=== PATIENT | female | born 1950 | race Caucasian/White ===

== ENCOUNTER 2016-12-25 06:23 | Day surgery (SDC) | payer MEDICARE, MEDICAID ==
[2016-12-25] MEDS ORDERED: Lactated Ringers 1,000 ML IV SCH (06:45)
[2016-12-25] MEDS ORDERED: Midazolam 1 MG/ML 2 ML SDV IV ONE (08:00)
[2016-12-25] MEDS ORDERED: Lidocaine 2% 100 MG/5 ML Syringe IVPUSH ONE (08:00)
[2016-12-25] MEDS ORDERED: Propofol 200 MG/20 ML SDV IV ONE (08:00)
--- NOTE | 2016-12-25 08:27 | PCM.OPNOTE ---
- General Post-Op/Procedure Note Date of Surgery/Procedure: 12/25/16 Operative Procedure(s): egd with bx Findings: antritis healing pyloric channel ulcers Pre Op Diagnosis: nausea vomiting. abd pain Post-Op Diagnosis: antritis. healing pyloric channel ulcers Anesthesia Technique: MAC Primary Surgeon: Billy Mathews Anesthesia Provider: Kirstie aCrpio Pathology: stomach Complications: None Condition: Good Free Text/Narrative:: see dictation
[2016-12-25 10:03] VITALS: BP 130/76
--- NOTE | 2016-12-25 10:37 | OR ---
DATE OF OPERATION: 12/25/2016 SURGEON: Billy Mathews MD PROCEDURE PERFORMED: Esophagogastroduodenoscopy with cold forceps biopsy. PREOPERATIVE DIAGNOSIS: Nausea and vomiting. POSTOPERATIVE DIAGNOSIS: Antritis with what appears to be healing pyloric ulcers. INDICATIONS FOR PROCEDURE: This is a 66-year-old white female, referred with a history of epigastric abdominal discomfort, persistent vomiting and vomiting. She was accepted an upper endoscopy. DESCRIPTION OF PROCEDURE: After an excellent IV sedation was administered, the bite block was inserted. The flexible endoscope was passed without difficulty down to the patient's esophagus into the stomach. The stomach was insufflated. The scope was passed through the pylorus to the second portion of duodenum and slowly withdrawn. The following findings were noted. Duodenum was unremarkable. The stomach, in the area of the antrum and the prepyloric area, there were what appeared to be two healing ulcerations. Biopsies were taken as well photos and some additional biopsies were taken of the antrum. The remainder of the stomach was essentially unremarkable. Esophagus was unremarkable. The stomach was deflated. The scope was removed. The patient tolerated the procedure well and was taken to recovery in good condition. /[id number] /MODL
== END 2016-12-25 09:50 | disposition home or self-care (01) ==
LOC: FB.SDS 06:23
PROVIDERS: ATTEND Surgery
DX: K29.50 Unspecified chronic gastritis without bleeding (principal); K31.9 Disease of stomach and duodenum, unspecified; R11.2 Nausea with vomiting, unspecified; K25.9 Gastric ulcer, unspecified as acute or chronic, without hemorrhage or perforation
CPT/HCPCS: 00902; 43239; J2250; J2704; J7120; 88305; 88342

== ENCOUNTER 2017-12-18 07:55 | Day surgery (SDC) | payer MEDICARE ==
[2017-12-18] MEDS ORDERED: Lactated Ringers 1,000 ML IV SCH (08:15)
[2017-12-18] MEDS ORDERED: Propofol 200 MG/20 ML SDV IV ONE (09:30)
[2017-12-18] MEDS ORDERED: Midazolam 1 MG/ML 2 ML SDV IV ONE (09:30)
--- NOTE | 2017-12-18 09:51 | PCM.OPNOTE ---
- General Post-Op/Procedure Note Date of Surgery/Procedure: 12/18/17 Operative Procedure(s): egd with bx Findings: diffuse gastritis Pre Op Diagnosis: nausea and emsis Post-Op Diagnosis: gastritis Anesthesia Technique: MAC Primary Surgeon: Billy Mathews Anesthesia Provider: Jesus Manuel Swanson Pathology: stomach Complications: None Condition: Good Free Text/Narrative:: see dictation #[id number]
[2017-12-18 11:19] VITALS: BP 119/65
--- NOTE | 2017-12-18 12:16 | OR ---
DATE OF OPERATION: 12/18/2017 SURGEON: Billy Mathews MD PROCEDURE: Esophagogastroduodenoscopy with cold forceps biopsy. PREOPERATIVE DIAGNOSES: Personal history of diffuse gastritis, persistent emesis, and abdominal pain. POSTOPERATIVE DIAGNOSIS: Gastritis. INDICATIONS FOR PROCEDURE: This is a 67-year-old white female who is well known to me. She has a history of chronic gastritis. Recently, she has had an exacerbation of her symptoms and has had some persistent nausea. As a result, we have brought her back for repeat endoscopy. DESCRIPTION OF PROCEDURE: After an excellent IV sedation was administered, the bite block was inserted. The flexible endoscope was passed without difficulty down the patient's esophagus into the stomach. The stomach was insufflated. Scope was passed through the pylorus to the second portion of the duodenum and slowly withdrawn. The following findings were noted. The duodenum was unremarkable. The stomach demonstrated some diffuse gastritis. Biopsies were taken. The pylorus was also noted to be patent with no evidence of stricture. The esophagus was unremarkable. Stomach was deflated, scope was removed. We will see the patient in followup in about a week. /[id number] /MODL
== END 2017-12-18 10:53 | disposition home or self-care (01) ==
LOC: FB.SDS 07:55
PROVIDERS: ATTEND Surgery
DX: K29.30 Chronic superficial gastritis without bleeding (principal); J44.9 Chronic obstructive pulmonary disease, unspecified; F17.210 Nicotine dependence, cigarettes, uncomplicated; E78.5 Hyperlipidemia, unspecified; F32.9 Major depressive disorder, single episode, unspecified; K21.9 Gastro-esophageal reflux disease without esophagitis; Z79.82 Long term (current) use of aspirin; Z79.899 Other long term (current) drug therapy
CPT/HCPCS: 00731; 43239; 88305; 88342; J2250; J2704; J7120

== ENCOUNTER 2022-02-14 05:59 | Day surgery (SDC) | payer MEDICARE ==
[2022-02-14] MEDS ORDERED: Propofol 200 MG/20 ML SDV IV ONE (06:00)
[2022-02-14] MEDS ORDERED: Sodium Chloride 0.9% 10 ML Syringe FLUSH PRN (06:15)
[2022-02-14] MEDS ORDERED: Lactated Ringers 1,000 ML IV SCH (06:15)
[2022-02-14 06:50] VITALS: BP 150/72; PULSE 69
== END 2022-02-14 08:45 | disposition home or self-care (01) ==
LOC: FB.SDS 05:59
PROVIDERS: ATTEND Surgery
DX: K31.89 Other diseases of stomach and duodenum (principal); K21.00 Gastro-esophageal reflux disease with esophagitis, without bleeding; K29.60 Other gastritis without bleeding; F41.9 Anxiety disorder, unspecified; J44.9 Chronic obstructive pulmonary disease, unspecified; F32.A Depression, unspecified; E78.5 Hyperlipidemia, unspecified; E66.9 Obesity, unspecified; M81.0 Age-related osteoporosis without current pathological fracture; Z90.49 Acquired absence of other specified parts of digestive tract; Z98.890 Other specified postprocedural states; Z79.899 Other long term (current) drug therapy; Z87.891 Personal history of nicotine dependence; Z68.37 Body mass index [BMI] 37.0-37.9, adult
CPT/HCPCS: 43239; J2704; J7120; 00731-QZ; 88305

== ENCOUNTER 2023-02-07 06:15 | Day surgery (SDC) | payer MEDICARE ==
[~2023-02-07 06:15] MED LIST: Lactated Ringers 1,000 ML IV SCH; Sodium Chloride 0.9% 10 ML Syringe FLUSH PRN
[2023-02-07] MEDS ORDERED: Propofol 200 MG/20 ML SDV IV ONE (06:16)
[2023-02-07] MEDS ORDERED: Lidocaine 2% 5 ML SDV IV ONE (06:16)
[2023-02-07] MEDS ORDERED: Lidocaine 2% 5 ML SDV ONE (06:16)
[2023-02-07] MEDS ORDERED: Glycopyrrolate 0.2 MG/ML 5 ML MDV IV ONE (06:16)
[2023-02-07 06:51] VITALS: BP 154/70; PULSE 70
== END 2023-02-07 09:27 | disposition home or self-care (01) ==
LOC: FB.SDS 06:15
PROVIDERS: ATTEND Surgery
DX: K21.00 Gastro-esophageal reflux disease with esophagitis, without bleeding (principal); K44.9 Diaphragmatic hernia without obstruction or gangrene; K29.70 Gastritis, unspecified, without bleeding; K31.89 Other diseases of stomach and duodenum; K22.70 Barrett's esophagus without dysplasia; J44.9 Chronic obstructive pulmonary disease, unspecified; F32.A Depression, unspecified; E78.5 Hyperlipidemia, unspecified; M81.0 Age-related osteoporosis without current pathological fracture; Z79.899 Other long term (current) drug therapy; Z90.49 Acquired absence of other specified parts of digestive tract; Z98.51 Tubal ligation status; Z87.891 Personal history of nicotine dependence; Z68.38 Body mass index [BMI] 38.0-38.9, adult
CPT/HCPCS: 00731; 43239; 88305; 88342; J2704; J3490; J7120

== ENCOUNTER 2024-08-30 14:33 | Inpatient (IN) | payer MEDICARE, OTHER ==
[2024-08-30] MEDS: Albuterol/Ipratropium 3.0-0.5 MG/3 ML Neb Soln NEB ONE (15:01)
[2024-08-30 15:36] LABS: BASOPHILS PERCENT AUTO 0.5 % (0.2-1.5); EOSINOPHILS PERCENT AUTO 0.2 % (0.6-8.1); HEMATOCRIT 36.5 % (34.2-48.2); HEMOGLOBIN 12.2 g/dL (11.4-15.5); LYMPHOCYTES ABSOLUTE AUTO 0.8 x10-3/uL (1.0-4.4); LYMPHOCYTES PERCENT AUTO 10.4 % (18.4-52.1); MEAN CORPUSCULAR HEMOGLOBIN 31.5 pg (23.9-33.9); MEAN CORPUSCULAR HGB CONC 33.4 g/dL (31.9-34.8); MEAN CORPUSCULAR VOLUME 94.5 fL (76.7-100.5); MEAN PLATELET VOLUME 8.2 fL (7.1-12.4); MONOCYTES ABSOLUTE AUTO 0.9 x10-3/uL (0.3-1.0); MONOCYTES PERCENT AUTO 11.7 % (4.4-15.7); NEUTROPHILS ABSOLUTE AUTO 5.8 x10-3/uL (1.5-6.3); NEUTROPHILS PERCENT AUTO 77.2 % (30.8-76.2); PLATELET COUNT,PLT 284 x10(3)uL (151-488); RED BLOOD CELL COUNT 3.87 x10(6)uL (3.60-5.20); RED CELL DISTRIBUTION WIDTH 13.7 % (12.3-16.5); WHITE BLOOD CELL COUNT,WBC 7.5 x10-3/uL (3.0-10.3)
[2024-08-30 15:41] LABS: BLOOD UREA NITROGEN,BUN 12 mg/dL (7-18); BUN/CREATININE RATIO 13.3 (9-20); CALCIUM 9.3 mg/dL (8.6-10.2); CARBON DIOXIDE,CO2 32 mmol/L (21-32); CHLORIDE,CL 98 mmol/L (100-110); CREATININE 0.9 mg/dL (0.55-1.02); ESTIMATED GFR 67 mL/min (>60); GLUCOSE RANDOM 108 mg/dL (80-116); SODIUM,NA 137 mmol/L (135-145)
[2024-08-30 15:48] LABS: A/G RATIO 0.9; ALANINE AMINOTRANSFERASE,ALT 20 U/L (12-36); ALBUMIN 3.9 g/dL (3.2-4.6); ALKALINE PHOSPHATASE 88 IU/L (56-112); ASPARTATE AMNIOTRANSFERASE,AST 23 IU/L (5-25); BILIRUBIN TOTAL 0.4 mg/dL (0.1-1.3); PROTEIN TOTAL,TP 8.3 g/dL (6.0-8.0)
[2024-08-30 15:55] LABS: TROPONIN I 17.4 pg/mL (4.0-60.3)
[2024-08-30 16:35] LABS: BILIRUBIN,URINE NEGATIVE (NEGATIVE); GLUCOSE,URINE NORMAL (NORMAL); KETONES,URINE NEGATIVE (NEGATIVE); LEUKOCYTE ESTERASE,URINE NEGATIVE (NEGATIVE); NITRITE,URINE NEGATIVE (NEGATIVE); OCCULT BLOOD,URINE MODERATE (NEGATIVE); PROTEIN,URINE NEGATIVE (NEGATIVE); UROBILINOGEN,URINE NORMAL (NEGATIVE)
[2024-08-30 16:38] LABS: APPEARANCE,URINE CLEAR (CLEAR); COLOR,URINE YELLOW (YELLOW)
[2024-08-30 16:39] LABS: BACTERIA,URINE OCCASIONAL (NS); RBC,URINE 0-5 (0-5); SQUAMOUS EPITHELIAL CELLS,UR OCCASIONAL (NS,R,O); WBC,URINE 0-5 (0-5)
[2024-08-30] MEDS: Iopamidol 755 Mg/ML 100 ML Bottle IV SCH (16:55)
[2024-08-30] MEDS: Sodium Chloride 0.9% 1,000 ML IV ONE (17:13)
[2024-08-30] MEDS: methylPREDNISolone Sodium Succinate 125 MG/2 ML SDV IVPUSH ONE (17:13)
[2024-08-30] MEDS ORDERED: Acetaminophen 325 MG Tab PO PRN (18:08)
[2024-08-30] MEDS ORDERED: Magnesium Hydroxide 400 MG/5 ML Susp 30 ML Cup PO PRN (18:08)
[2024-08-31] MEDS: guaiFENesin/Dextromethorphan 100-10 MG/5 ML Soln 5 ML Cup PO PRN (03:18)
[2024-08-31] MEDS: Albuterol/Ipratropium 3.0-0.5 MG/3 ML Neb Soln NEB SCH (04:24)
[2024-08-31] MEDS: Iopamidol 755 Mg/ML 100 ML Bottle IV SCH (11:27)
[2024-08-31] MEDS: Oseltamivir 75 MG Cap PO SCH (11:33)
[2024-08-31] MEDS: Sodium Chloride 0.9% 10 ML Syringe FLUSH PRN (11:33)
[2024-08-31] MEDS: Sodium Chloride 0.9% 1,000 ML IV SCH (11:34)
[2024-08-31] MEDS ORDERED: Polyethylene Glycol 3350 Powder 17 GM Packet PO PRN (13:55)
[2024-08-31] MEDS ORDERED: Albuterol 6.7 GM Inhaler INH PRN (13:55)
[2024-08-31] MEDS ORDERED: Non-Formulary Medication 1 Each (Budesonide/Glycopyr/Formoterol [Breztri Aerosphere Inhale IH SCH (14:00)
[2024-08-31] MEDS: Enoxaparin 40 MG/0.4 ML Syringe SUBCUT SCH (14:40)
[2024-08-31] MEDS: Citalopram 20 MG Tab PO SCH (14:40)
[2024-08-31] MEDS: Gabapentin 300 MG Cap PO SCH (14:41)
[2024-08-31] MEDS: methylPREDNISolone Sodium Succinate 40 MG/1 ML SDV IVPUSH SCH (14:41)
[2024-08-31] MEDS: Formoterol/Mometasone 200-5 MCG 8.8 GM Inhaler INH SCH (14:50)
[2024-08-31] MEDS: Tiotropium Bromide 4 GM Inhalation Spray (2.5mcg/1 dose; 10 doses) INH SCH (14:51)
[2024-08-31] MEDS ORDERED: Codeine/guaiFENesin 10-100 MG/5 ML Syrup 5 ML Cup PO PRN (15:00)
[2024-08-31] MEDS: Sucralfate 1 GM Tab PO SCH (16:53)
[2024-08-31] MEDS: Furosemide 40 MG/4 ML VIAL IVPUSH SCH (16:53)
[2024-08-31] MEDS: Pantoprazole 40 MG Tab.CR PO SCH (16:53)
[2024-08-31] MEDS: Famotidine 20 MG Tab PO SCH (20:47)
[2024-08-31] MEDS: atorvaSTATin 20 MG Tab PO SCH (20:47)
[2024-08-31] MEDS: Calcium Carbonate 500 MG Tablet PO SCH (20:47)
[2024-08-31] MEDS: Fluticasone NASAL Spray 16 GM Bottle NASBOTH SCH (20:48)
[2024-09-01 07:20] LABS: BASOPHILS PERCENT AUTO 0.1 % (0.2-1.5); EOSINOPHILS PERCENT AUTO 0.1 % (0.6-8.1); HEMOGLOBIN 12.3 g/dL (11.4-15.5); LYMPHOCYTES PERCENT AUTO 18.4 % (18.4-52.1); MEAN CORPUSCULAR HEMOGLOBIN 31.4 pg (23.9-33.9); MEAN CORPUSCULAR HGB CONC 33.4 g/dL (31.9-34.8); MEAN CORPUSCULAR VOLUME 94.2 fL (76.7-100.5); MEAN PLATELET VOLUME 8.3 fL (7.1-12.4); MONOCYTES ABSOLUTE AUTO 0.3 x10-3/uL (0.3-1.0); NEUTROPHILS ABSOLUTE AUTO 4.1 x10-3/uL (1.5-6.3); NEUTROPHILS PERCENT AUTO 76.4 % (30.8-76.2); PLATELET COUNT,PLT 312 x10(3)uL (151-488); RED BLOOD CELL COUNT 3.93 x10(6)uL (3.60-5.20); RED CELL DISTRIBUTION WIDTH 13.8 % (12.3-16.5); WHITE BLOOD CELL COUNT,WBC 5.4 x10-3/uL (3.0-10.3)
[2024-09-01 07:24] LABS: BLOOD UREA NITROGEN,BUN 16 mg/dL (7-18); BUN/CREATININE RATIO 17.8 (9-20); CALCIUM 8.9 mg/dL (8.6-10.2); CARBON DIOXIDE,CO2 31 mmol/L (21-32); CHLORIDE,CL 102 mmol/L (100-110); CREATININE 0.9 mg/dL (0.55-1.02); EST CRCL DRUG DOSING (CG) 51.34 mL/min; ESTIMATED GFR 67 mL/min (>60); GLUCOSE RANDOM 150 mg/dL (80-116); POTASSIUM,K 3.7 mmol/L (3.5-5.3); SODIUM,NA 143 mmol/L (135-145)
[2024-09-01] MEDS: Loratadine 10 MG Tab PO SCH (09:57)
[2024-09-01] MEDS: Ferrous Sulfate 325 MG Tab PO SCH (09:57)
[2024-09-01] MEDS: amLODIPine 5 MG Tab PO SCH (09:57)
[2024-09-01] MEDS ORDERED: FLUOCINONIDE 0.05% TOP SCH (13:55)
[2024-09-01 19:45] LABS: PROCALCITONIN 0.06 ng/mL
[2024-09-02 05:53] LABS: BASOPHILS PERCENT AUTO 0.1 % (0.2-1.5); HEMATOCRIT 38.2 % (34.2-48.2); HEMOGLOBIN 12.6 g/dL (11.4-15.5); LYMPHOCYTES ABSOLUTE AUTO 0.6 x10-3/uL (1.0-4.4); LYMPHOCYTES PERCENT AUTO 11.8 % (18.4-52.1); MEAN CORPUSCULAR HEMOGLOBIN 30.8 pg (23.9-33.9); MEAN CORPUSCULAR HGB CONC 32.9 g/dL (31.9-34.8); MEAN CORPUSCULAR VOLUME 93.4 fL (76.7-100.5); MEAN PLATELET VOLUME 8.4 fL (7.1-12.4); MONOCYTES ABSOLUTE AUTO 0.2 x10-3/uL (0.3-1.0); MONOCYTES PERCENT AUTO 4.7 % (4.4-15.7); NEUTROPHILS ABSOLUTE AUTO 4.3 x10-3/uL (1.5-6.3); NEUTROPHILS PERCENT AUTO 83.4 % (30.8-76.2); PLATELET COUNT,PLT 301 x10(3)uL (151-488); RED BLOOD CELL COUNT 4.09 x10(6)uL (3.60-5.20); RED CELL DISTRIBUTION WIDTH 13.7 % (12.3-16.5); WHITE BLOOD CELL COUNT,WBC 5.1 x10-3/uL (3.0-10.3)
[2024-09-02 05:57] LABS: BLOOD UREA NITROGEN,BUN 15 mg/dL (7-18); BUN/CREATININE RATIO 16.7 (9-20); CARBON DIOXIDE,CO2 30 mmol/L (21-32); CHLORIDE,CL 102 mmol/L (100-110); CREATININE 0.9 mg/dL (0.55-1.02); GLUCOSE RANDOM 150 mg/dL (80-116); POTASSIUM,K 3.9 mmol/L (3.5-5.3); SODIUM,NA 141 mmol/L (135-145)
[2024-09-02 05:58] LABS: CALCIUM 9.3 mg/dL (8.6-10.2); EST CRCL DRUG DOSING (CG) 51.34 mL/min; ESTIMATED GFR 67 mL/min (>60)
[2024-09-02 11:50] VITALS: BP 133/74; PULSE 84
== END 2024-09-02 12:40 | disposition home health service (06) | DRG 193 ==
LOC: FB.ED 14:33 → FB.MS 19:03
PROVIDERS: ADMIT Family Medicine; ATTEND Internal Medicine
DX: J10.1 Influenza due to other identified influenza virus with other respiratory manifestations (principal); R09.02 Hypoxemia; J96.01 Acute respiratory failure with hypoxia; J44.0 Chronic obstructive pulmonary disease with (acute) lower respiratory infection; J44.1 Chronic obstructive pulmonary disease with (acute) exacerbation; H26.9 Unspecified cataract; E78.00 Pure hypercholesterolemia, unspecified; K21.9 Gastro-esophageal reflux disease without esophagitis; Z68.33 Body mass index [BMI] 33.0-33.9, adult; M19.90 Unspecified osteoarthritis, unspecified site; G89.29 Other chronic pain; G62.9 Polyneuropathy, unspecified; J44.89 Other specified chronic obstructive pulmonary disease; F41.9 Anxiety disorder, unspecified; F32.A Depression, unspecified; E66.9 Obesity, unspecified; F15.90 Other stimulant use, unspecified, uncomplicated; R79.89 Other specified abnormal findings of blood chemistry; M81.0 Age-related osteoporosis without current pathological fracture; Z98.890 Other specified postprocedural states; Z79.51 Long term (current) use of inhaled steroids; Z79.02 Long term (current) use of antithrombotics/antiplatelets; Z79.899 Other long term (current) drug therapy; Z68.34 Body mass index [BMI] 34.0-34.9, adult; Z90.49 Acquired absence of other specified parts of digestive tract; Z98.51 Tubal ligation status; Z87.891 Personal history of nicotine dependence
CPT/HCPCS: 36415; 71045; 71275; 80048; 80053; 81001; 83605; 83880; 84145; 84484; 85025; 85379; 86140; 87428-QW; 93005; 93010; 93306; 94640; 96361; 96374; 97165-GO; 99222; 99232; 99238; 99285; 99285-25; A9270-GY; J1650; J1940; J2919; J7030; J7620; Q9967